=== PATIENT | female | born 1990 | race Caucasian/White ===

== ENCOUNTER 2024-04-02 08:49 | Day surgery (SDC) | payer OTHER, SELFPAY ==
[2024-03-31 13:41] VITALS: BMI 24.3
[2024-04-02] VITALS (7 sets, daily range): BP systolic 115–130; BP diastolic 71–83; PULSE 76–94; RESP 12–16; TEMP 36.4–36.8; O2SAT 96–98; BMI 24.3
--- NOTE | 2024-04-02 | PATH_ITS ---
[facility] Accession Number: [id number] No. of containers..01 Tissue . 01 Material submitted: . fallopian tube - BILATERAL FALLOPIAN TUBES . 01 Diagnosis: BILATERAL FALLOPIAN TUBES, BILATERAL SALPINGECTOMY: Complete cross section of bilateral fimbriated fallopian tube lumen identified without any significant pathologic alterations. V 04/06/2024 1600 Local . 01 Electronically signed: . Sofia Law MD, Pathologist NPI- [id number] . 01 Gross description: . Received in formalin, labeled with two patient identifiers and bilateral fallopian tubes, and consists of two segments of fallopian tubes which both have fimbriated ends and average 2.5 cm in length and up to 0.5 cm in diameter. These tubes are arbitrarily differentially inked blue and black and sectioned to show stellate lumens that average 0.3 cm. Also received in the same container are two additional segments of tubal tissue averaging 2.5 cm in length by 0.3 cm in diameter and are sectioned to show a 0.2 cm pinpoint lumen. Layer Off sections of the fimbriated tubes are submitted in: Cassette A1: Arbitrarily black-inked fimbriated fallopian tube fimbriae, entirely submitted in cross sections. Cassette A2: Arbitrarily inked blue, fimbriated fallopian tube fimbriae, entirely submitted in complete cross sections. ([id number]) /DIANA 04/03/2024 1416 Local . 01 Pathologist provided ICD-10: Z30.2 . 01 CPT . 767921 Specimen Comment: A courtesy copy of this report has been sent to [phone] Performed at: [address] [address], [place], [place] [id number] MD Kevin Abraham MD Phone: [phone]
--- NOTE | 2024-04-02 09:00 | SUR.PREOP ---
pt late states my paperwork says [id number]. lm yesterday for 08 arrival
[2024-04-02] MEDS: LACTATED RINGERS 1,000 ML 42 ML IV ×2 (09:15→10:49)
--- NOTE | 2024-04-02 09:23 | PM.PREOP ---
Pre-operative Note COVID-19 COVID-19 status: Not tested Interval Note History & Physical reviewed/Exam performed by Physician: Yes Changes to H&P: No
--- NOTE | 2024-04-02 10:20 | SUR.OPER ---
Lithotomy on padded OR bed, head on pillow, arms padded and tucked. Legs secured in padded yellow fins stirrups.
[2024-04-02] MEDS: BUPIVACAINE 0.5% W/ EPI (PF) 10 ML VIAL 30 ML INJ (10:26)
[2024-04-02] MEDS: fentaNYL 100 MCG/2 ML INJ IV (11:01)
[2024-04-02] MEDS: ACETAMINOPHEN IV 1,000 MG/100 ML VIAL 400 MG IV (11:02)
[2024-04-02] MEDS: OXYCODONE IR 5 MG TABLET 15 MG PO (11:04)
--- NOTE | 2024-04-02 11:07 | P.OP_ITS ---
Procedure & Clinicians Procedure: Procedures Operation Date: 04/02/24 09:45 Actual Procedure Side Surgeon p Laparoscopic Salpingectomy Bilateral Lisandro Niño MD Indications: Madison is a 33-year-old , who recently had her 3rd on 01/12/2024 who presents to discuss sterilization. Unfortunately at the time of her section, she had not executed HHS form 687 therefore could not undergo sterilization at the time of her . Instead she would like to move forward now with interval sterilization by laparoscopic salpingectomy. Her Pap is current and her Paps have always been normal with her most recent in 2021. She has irregular periods and required ovulation induction to conceive with her 1st . She had her 1st, 2nd and 4th delivered by with her 3rd delivered by at the [facility]. She has no other ongoing gynecologic complaints or concerns. Patient counseled regarding alternatives, risks, benefits, and potential complications associated with laparoscopic bilateral salpingectomy for sterilization. She understands that this is a procedure which will result in her permanently and irreversibly being unable to bear children without benefit of assisted reproductive technology. In addition she fully understands that this procedure does carry a small risk ( 1-11/999) of failure and should failure occur, it is most likely that she would have an ectopic gestation as a result. With full understanding of the above, an HHS form 687 was executed and signed 02/25/2024. She presents today for her scheduled surgery. Surgeon: Lisandro Niño Anesthesia Type: General Operative Notes Findings: The uterus is normal in size and shape. It is mid position to retroverted. Tubes appear normal as do the ovaries. The anterior cul-de-sac demonstrates changes consistent with prior . Posterior cul-de-sac is unremarkable and there was no evidence of endometriosis or scarring in the posterior cul-de-sac. The appendix was not visualized but the liver edge and gallbladder appear normal to laparoscopic evaluation. Closure Type: primary Specimen(s): left tube and right tube Estimated blood loss (mL): 5 Blood products transfused: none Procedure in detail: With the patient under satisfactory general anesthesia in the modified dorsal lithotomy position, the perineum, vagina, and abdomen were prepped and draped for IUD removal and laparoscopic bilateral salpingectomy. A pre-surgical safety time-out was then taken in accordance with [facility] protocols. The umbilicus was then infiltrated with 0.5% Marcaine with epinephrine and 1 cm vertical incision was made in the inferior aspect of the umbilicus. Veress needle was used to insufflate the abdomen with carbon dioxide and once appropriately insufflated, 5 mm bladeless trocar and sleeve were inserted through the incision. Proper placement of the sleeve was confirmed with laparo scopic visualization and insufflation of the abdomen continued. A 2nd and 3rd 5 mm laparoscopic port were placed in the right and left mid quadrants using a similar technique and using a 3 puncture technique, the abdomen and pelvis were visualized with the findings as noted above. The distal aspect of the left fallopian tube was then grasped with a grasping forceps and using a Power Seal device, fimbria ovarica was coagulated and divided the dissection using the Power Seal continuing across the mesosalpinx to the cornua where the base fallopian tube was coagulated and divided. The left fallopian tube was then removed through one of the ports and submitted pathologic specimen. Attention was then turned to the right adnexa with distal tube grasped with a grasping forcep. The Power Seal device was then used to coagulate fimbria ovarica and the dissection was carried across the mesosalpinx to the cornua where the fallopian tube on the right side was amputated at the cornua following c oagulation proximal tube the Power Seal device. Pelvis was inspected and there were no abnormalities noted following bilateral salpingectomy. The pneumoperitoneum was then vented and the ports removed from the abdominal wall. Port incisions were then closed with 4-0 Monocryl using inverted interrupted stitches and skin glue was applied. Appropriate dressings were then applied, patient was awakened, and transferred to the PACU for a period of observation after having tolerated the procedure well. Complications: none Post-operative Condition: stable Disposition: PACU Plan for aftercare: Routine postoperative care with follow-up planned for 2 weeks postop.
== END 2024-04-02 11:46 | disposition home or self-care (01) ==
PROVIDERS: Referring Provider Obstetrics & Gynecology; Visit Provider Obstetrics & Gynecology
PROC: 0UT74ZZ Resection of Bilateral Fallopian Tubes, Percutaneous Endoscopic Approach (ICD-10-PCS; CPT 58661; principal; 2024-04-02 09:45)
DX: Z30.2 Encounter for sterilization (principal)
CPT/HCPCS: 58661; 81025; J0136; J1100; J1170; J2405; J2704; J3010